=== PATIENT | female | born 1970 | race African-American/Black ===

== ENCOUNTER 2017-11-02 08:42 | Emergency (ER) | payer OTHER ==
[2017-11-02 09:06] LABS: Bilirubin Small (Negative); Blood, Urine Negative (Negative); Clarity Slightly Cloudy (Clear); Glucose, Urine (Dipstick) Negative (Negative); Leukocyte Negative (Negative); Nitrite Negative (Negative); Protein, Urine (Dipstick) Trace mg/dL (Neg-Trace); Specific Gravity, Urine 1.033 (1.002-1.036); pH, Urine 5.5 (5.0-9.0)
[2017-11-02 09:07] LABS: Pregu Control Background? CLEAR/WHITE (CLR/WHITE); Pregu Control Bar Appear? YES (CONTROL BAR); Specific Gravity 1.033 (1.002-1.036)
[2017-11-02 09:08] LABS: Pregnancy Test - Urine (BHCG) Negative (Negative)
--- NOTE | 2017-11-02 12:38 | CT ---
NONCONTRAST CT ABDOMEN AND PELVIS: DATE: 11/02/17. HISTORY: Sudden occurrence of bilateral lower back pain which started 1 week ago. The pain is episodic. The patient complains of mild postvoid dysuria and urinary frequency. COMPARISON: 12/31/15. FINDINGS: Visualized lung bases are clear. Postsurgical changes related to cholecystectomy are again noted with postsurgical changes again invol ving the stomach with findings likely attributable to gastric bypass surgery. The liver, spleen, pancreas, bilateral adrenal glands, kidneys, and uterus demonstrate a grossly norm al nonenhanced CT appearance. No renal or ureteral calculi are seen bilaterally. The urinary bladde r is incompletely distended and not well evaluated on this exam. IMPRESSION: 1. No renal or ureteral calculi are seen bilaterally. 2. Postsurgical changes of bariatric surgery as well as cholecystectomy. 3. Mild degenerative changes in the lower lumbar spine at the L4-5 level. The vertebral body height s do appear to be within normal limits, and no fracture is present involving the lumbar spine. 4. Constipation. POS: NELL
== END 2017-11-02 10:34 | disposition home or self-care (01) ==
LOC: SCSER 08:42
DX: M46.96 Unspecified inflammatory spondylopathy, lumbar region (principal); K59.00 Constipation, unspecified; I10 Essential (primary) hypertension; E66.9 Obesity, unspecified
CPT/HCPCS: 74176; 81003; 81025

== ENCOUNTER 2017-11-18 07:54 | Outpatient (CLI) | payer OTHER ==
--- NOTE | 2017-11-18 13:28 | CT ---
CT ABDOMEN AND PELVIS WITH IV CONTRAST: HISTORY: Abdominal pain. Back pain. COMPARISON: 12/31/2015 FINDINGS: The lung bases are clear. The liver, spleen, pancreas, adrenal glands, and kidneys are normal. Ther e are changes of cholecystectomy and gastric bypass surgery. No free air, free fluid, or lymphadenop athy seen in the abdomen or pelvis. There are vascular calcifications without evidence of aneurysmal dilatation of the abdominal aorta. There is a mass in the uterus, likely fibroid. There is a 2.5 c m cyst in the right adnexa, likely ovarian. There are mild degenerative changes in the spine. The sm all bowel loops are not abnormally dilated. IMPRESSION: 1. Uterine fibroid. 2. A 2.5 cm right adnexal cyst, likely ovarian. 3. No evidence of bowel obstruction. POS: NELL
== END 2017-11-18 07:55 | disposition home or self-care (01) ==
LOC: SCSCT 07:54
DX: D25.9 Leiomyoma of uterus, unspecified (principal); N83.8 Other noninflammatory disorders of ovary, fallopian tube and broad ligament; Z98.84 Bariatric surgery status
CPT/HCPCS: 74177

== ENCOUNTER 2018-09-21 08:51 | Outpatient (CLI) | payer OTHER ==
--- NOTE | 2018-09-21 10:54 | MRI ---
[facility] Lower Ext Jt Rt WO Con History: [M 25.56 knee pain] Comparison: None Findings: Medial meniscus: There is maceration of the entire medial meniscus with degenerative tearin g throughout the body and posterior horn including the posterior root attachment. There is 5 mm media l collateral extrusion with scarring. Lateral meniscus: Intact The ACL, PCL, MCL, LCL are all intact. Extensor mechanism: The quadriceps tendon, patella, and patellar tendon are intact. Mild pretibial soft tissue swelling. Mild prepatellar soft tissue swelling. Cartilage: Patellofemoral compartment: High grade chondral fissuring along the lateral patellar facet as well as central trochlea with cartilage delamination. Medial compartment: There is grade IV chondromalacia with subcortical reactive marrow changes includi ng cyst formation and sclerosis. Lateral compartment: There are a few high-grade cartilage fissures along the posterior weightbearing surface lateral femoral condyle with early subcortical reactive marrow changes. Muscles: Muscle signal and bulk is normal. Trace joint effusion. Impression: 1. 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 2. 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
== END 2018-09-21 08:52 | disposition home or self-care (01) ==
LOC: MRI 08:51
PROVIDERS: ATTEND Orthopaedic Surgery
DX: M25.561 Pain in right knee (principal); M22.41 Chondromalacia patellae, right knee